=== PATIENT | female | born 1995 | race Caucasian/White ===

== ENCOUNTER 2020-02-18 10:09 | Day surgery (SDC) | payer OTHER ==
[2020-02-18] MEDS ORDERED: Ringers Lactate 1,000 ML IV ONE ×2 (10:27→13:23)
[2020-02-18] MEDS ORDERED: CEFAZOLIN/SWI 2gm 2 GM/20 ML SYR ONE (10:27)
[2020-02-18 10:30] LABS: Specific Gravity 1.025 (1.005-1.030)
[2020-02-18] MEDS ORDERED: propofoL 200 MG/20 ML VIAL IV ONE (11:39)
[2020-02-18] MEDS ORDERED: FENTANYL CITR 100 MCG/2 ML ONE (11:39)
[2020-02-18] MEDS ORDERED: LIDOCAINE 2% MPF 5 ML VIAL ONE (11:40)
[2020-02-18] MEDS ORDERED: MIDAZOLAM HCL 2 MG/2 ML INJ ONE (11:40)
[2020-02-18] MEDS ORDERED: ONDANSETRON 4 MG/2 ML VIAL ONE ×2 (12:00→14:25)
[2020-02-18] MEDS ORDERED: dexAMETHasone 10 MG/ML VIAL ONE (12:00)
[2020-02-18] MEDS: LIDOCAINE 1% W/EPI 1:100,000 MDV 20 ML VIAL ONE ×3 (12:20→12:27)
[2020-02-18] MEDS: MEPERIDINE HCL 25 MG/ML SYR ONE ×2 (13:24→13:31)
[2020-02-18 13:48] VITALS: TEMP 97.3
[2020-02-18] MEDS ORDERED: HYDROCODONE/APAP 5/325 MG TAB PO ONE (14:14)
[2020-02-18] MEDS ORDERED: ONDANSETRON 4 MG/2 ML VIAL IV ONE (14:14)
[2020-02-18] MEDS ORDERED: HYDROCODONE/APAP 5/325 MG TAB ONE (14:25)
[2020-02-18 16:35] VITALS: BP 133/83; O2SAT 99
--- NOTE | 2020-04-04 00:45 | OP ---
Date of Procedure: 02/18/2020 Surgeon: Beatrice Larsen MD Plant Changer: Jessica Pennington. Preoperative Diagnosis: Right labial pain and discomfort due to right labial elongation and asymmetr y. Postoperative Diagnosis: Right labial pain and discomfort due to right labial elongation and asymmet ry. Procedures Performed: Right labial reduction and labiaplasty with reconstruction and mobilization of flaps. Anesthesia: General endotracheal. Estimated Blood Loss: Minimal. Specimens: Right labial skin. Complications: No complications. Drains: No drains. Condition: Stable. 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 Description Of Procedure: After informed consent was verified, the patient was taken back to the OR, Ancef 2 g were given preop. She was consented and taken back to the OR. After placing her in the s upine position on the operating table, general anesthesia was given. She was placed in a dorsal lith otomy position. Pelvic exam was performed and findings as above. Lower abdomen, vulva, vagina, and perineum were prepped and draped in a sterile fashion. Hayes was placed and the patient was made to void prior to the procedure, so there was no need for catheterization. Then, the labial skin measure ments were taken and the skin was held with the help of Allis clamps. Starting at the very apex, gisela lazaro was made to make sure that there will be no dog-ear and make sure that it would be well reapprox imated. So, once the outline in the elliptical fashion was made starting at the apex of the right la sandip minora coming down to the base of it, then the lateral margins were at least a centimeter apart f rom each other. Then, 1% lidocaine mixed with 1:100,000 epinephrine was injected here with a 23-gaug e needle. Then, once the subcutaneous tissues were all well infiltrated and after giving it time for a few minutes, then the incision was made with the help of a 15 blade in a circumferential fashion. Then, the excision of the labial epithelium, subepithelium was done from the underlying tissues and once this entire piece was excised, handed off for pathology. Then placing the Allis' on each of the edges, the flaps of the labia minora were raised, mobilized in order for them to be reapproximated without tension or without causing significant asymmetry. The m obilization on the lateral aspect was much easier than mobilization on the medial aspect, which was s lightly more bloody, but once hemostasis was secured with the help of the Bovie as well as interrupte d [id number] 3-0 Vicryl sutures, then entire base was satisfactorily hemostatic. Then, closure was performed with the help of 3-0 Vicryl interrupted sutures all along the subdermal area deep tissu es to prevent any hematoma formation. Once all these interrupted sutures were placed, at least 6 of them, then subcutaneous tissues were reapproximated with the help of the 3-0 Vicryl in an interrupted fashion. Once all these interrupted sutures were placed, then the labial epithelial closure was per formed with the help of a continuous running 4-0 Vicryl suture in a subcuticular fashion. When I cam e down, there was still a dog-ear and so slightly further excised and reapproximated and buried the k not at the end. Thorough suction and irrigation were performed. No evidence of any hematoma formati on. There was excellent hemostasis. The patient was recovered from anesthesia and fluff gauzes were placed and mesh panties used for a bandage. Did not catheterize the patient. EBL was minimal. The patient was taken to the PACU in stable condition after recovery in the OR. Instrument, needle, and sponge counts were correct at the end of the case. WILBERT/MARLON Voice ID: [id number] Report ID: [id number]
== END 2020-02-18 15:10 | disposition home or self-care (01) ==
LOC: OR 10:09
PROVIDERS: ATTEND Obstetrics & Gynecology
PROC: 0UBMXZZ Excision of Vulva, External Approach (ICD-10-PCS; principal; 2020-02-18 11:15)
DX: N90.60 Unspecified hypertrophy of vulva (principal); N94.819 Vulvodynia, unspecified; N94.6 Dysmenorrhea, unspecified; F17.201 Nicotine dependence, unspecified, in remission; Z20.828 Contact with and (suspected) exposure to other viral communicable diseases
CPT/HCPCS: 56620; 81025; 88302; U0002; J2704; J2250; J3010; J1100; J2175; J0690; J7120 ×2; J2405 ×3; 88305